=== PATIENT | female | born 1990 | race Hispanic/Latino ===

== ENCOUNTER 2023-05-26 05:31 | Inpatient (IN) | payer BC ==
[2023-05-25 12:55] LABS: Hematocrit 37.6 % (34.9-44.5); Hemoglobin 13.1 g/dL (12.0-15.5); Platelet Count 179 10x3/uL (150-450)
[2023-05-25 13:39] LABS: HBSAg Index 0.16 S/CO (0-0.99); Hep B Surf Ag Non-Reactive S/CO (NonReactive)
[2023-05-25 13:40] LABS: Syphilis Antibody Nonreactive (Nonreactive); Syphilis Antibody Index 0.05 S/CO (<1.00 Non-Reactive)
[2023-05-26 05:55] VITALS: BMI 34.0
[2023-05-26] MEDS ORDERED: Dexmedetomidine 200 MCG/2 ML VIAL ONE (06:32)
[2023-05-26] MEDS ORDERED: Ondansetron PF 4 MG/2 ML Vial IVP PRN ×4 (06:38→11:17)
[2023-05-26] MEDS ORDERED: Promethazine HCl 25 MG/ML VIAL IM PRN ×2 (06:38→07:07)
[2023-05-26] MEDS ORDERED: hydrALAZINE 20 MG/ML VIAL SLOW IVP PRN ×2 (06:38→11:17)
[2023-05-26] MEDS ORDERED: Famotidine/PF 20 mg/2ml Vial SLOW IVP PRN (06:38)
[2023-05-26] MEDS ORDERED: Bicitra 30 ML UDCUP PO PRN (06:38)
[2023-05-26] MEDS ORDERED: Lactated Ringer's 1,000 ML IV SCH (06:45)
[2023-05-26] MEDS ORDERED: Oxytocin 30 units/NS 500 ML 500 ML IV SCH ×2 (06:45→11:17)
[2023-05-26] MEDS ORDERED: CEFAZOLIN 2 GM in Sodium Chloride 0.9% 100 ML IVPB SCH (06:45)
[2023-05-26] MEDS ORDERED: Oxytocin 10 UNITS/ML VIAL ONE (06:57)
[2023-05-26] MEDS ORDERED: Morphine PF 10 MG/10 ML VIAL ONE (06:57)
[2023-05-26] MEDS ORDERED: Ketorolac Tromethamine 30 MG/ML VIAL ONE (06:57)
[2023-05-26] MEDS ORDERED: Ondansetron PF 4 MG/2 ML Vial ONE (06:57)
[2023-05-26] MEDS ORDERED: PHENYLEPHRINE-NS 100 MCG/ML 10 ML SYRINGE ONE (06:57)
[2023-05-26] MEDS ORDERED: Phenylephrine 40 MG/NS 250 ML 250 ML ONE (06:57)
[2023-05-26] MEDS ORDERED: Dexamethasone 4 mg/ml Vial ONE (06:57)
[2023-05-26] MEDS ORDERED: Moisturizing Cream (Eucerin) 113 GM JAR TOP PRN (07:07)
[2023-05-26] MEDS ORDERED: Naloxone HCl 0.4 mg/ml Vial IV PRN (07:07)
[2023-05-26] MEDS ORDERED: Naloxone HCl 0.4 mg/ml Vial IVP PRN ×2 (07:07)
[2023-05-26] MEDS ORDERED: Ketorolac Tromethamine 30 MG/ML VIAL IVP PRN (07:07)
[2023-05-26] MEDS ORDERED: Promethazine HCl 25 MG SUPP PR PRN (07:07)
[2023-05-26] MEDS ORDERED: diphenhydrAMINE 50 MG/ML VIAL IVP PRN (07:07)
[2023-05-26] MEDS ORDERED: Meperidine HCl/PF 25 MG/ML VIAL SLOW IVP PRN (07:07)
[2023-05-26] MEDS ORDERED: fentaNYL 50 mcg/mL 1 mL Vial SLOW IVP PRN (07:07)
[2023-05-26] MEDS ORDERED: Ketorolac Tromethamine 30 MG/ML VIAL IVP SCH (07:15)
[2023-05-26] MEDS ORDERED: Communication Order-Pharmacy FS SCH (07:15)
[2023-05-26] MEDS ORDERED: Phytonadione Neonatal 1 MG/0.5 ML AMP ONE (08:02)
[2023-05-26] MEDS ORDERED: Erythromycin Base 0.5% Oint 1 GM TUBE ONE (08:02)
[2023-05-26] MEDS ORDERED: ePHEDrine Sulfate 50 MG/10 ML VIAL ONE (08:32)
[2023-05-26] MEDS ORDERED: Boostrix 0.5 ML (Tdap) VIAL (>/=7 yrs of age) IM ONE (11:17)
[2023-05-26] MEDS ORDERED: Lanolin Ointment 7 GM TUBE TOP PRN (11:17)
[2023-05-26] MEDS ORDERED: Simethicone Chewable 80 MG TAB PO PRN (11:17)
[2023-05-26] MEDS ORDERED: Bisacodyl 10 MG SUPP PR PRN (11:17)
[2023-05-26] MEDS ORDERED: Prenatal Vitamin 1 TAB PO SCH (12:00)
[2023-05-26] MEDS ORDERED: Ferrous Sulfate 325 MG TAB PO SCH (12:00)
[2023-05-26] MEDS ORDERED: Ibuprofen 800 MG TAB PO SCH (14:00)
[2023-05-26] MEDS: Ketorolac Tromethamine 30 MG/ML VIAL IVP SCH ×2 (14:48→21:05)
[2023-05-26] MEDS ORDERED: HYDROcodone/Acetaminophen 5/325 mg Tablet PO PRN ×2 (19:15)
[2023-05-26] MEDS: Ferrous Sulfate 325 MG TAB PO SCH (22:59)
[2023-05-27] MEDS: Ketorolac Tromethamine 30 MG/ML VIAL IVP SCH ×2 (02:36→09:34)
[2023-05-27 05:54] LABS: Mean Corpuscular HGB CONC 34.4 g/dL (32.0-36.0); Mean Corpuscular Volume 90.1 fl (81.6-98.3); Mean Platelet Volume 11.6 fl (7.4-10.4); Platelet Count 176 10x3/uL (150-450); RBC Distribution Width 13.1 % (11.5-14.5); Red Blood Cell (RBC) Count 3.55 10x6/uL (3.90-5.03); White Blood Cell (WBC) Count 11.1 10x3/uL (3.5-10.5)
[2023-05-27] MEDS: Prenatal Vitamin 1 TAB PO SCH (09:35)
[2023-05-27] MEDS: Ferrous Sulfate 325 MG TAB PO SCH (12:01)
[2023-05-27] MEDS: Ibuprofen 800 MG TAB PO SCH ×2 (13:52→21:33)
[2023-05-28] MEDS: Ferrous Sulfate 325 MG TAB PO SCH ×2 (01:16→07:22)
[2023-05-28] MEDS ORDERED: Senokot S 8.6-50 MG TAB PO SCH (02:00)
[2023-05-28] MEDS: Ibuprofen 800 MG TAB PO SCH (06:08)
[2023-05-28 08:27] VITALS: BP 101/55; TEMP 98.3
[2023-05-28] MEDS: Prenatal Vitamin 1 TAB PO SCH (11:13)
== END 2023-05-28 11:55 | disposition home or self-care (01) | DRG 788 ==
LOC: CSHLD 05:31 → CSHPED 11:23
PROVIDERS: ADMIT Obstetrics & Gynecology; ATTEND Obstetrics & Gynecology
PROC: 10D00Z1 Extraction of Products of Conception, Low, Open Approach (ICD-10-PCS; principal; 2023-05-26)
DX: O34.211 Maternal care for low transverse scar from previous cesarean delivery (principal); Z3A.39 39 weeks gestation of pregnancy; Z37.0 Single live birth
CPT/HCPCS: 36415; 51702; 85014; 85018; 85027; 85049; 86780; 86850; 86900; 86901; 87340; J1100; J1885; J2274; J2405; J2590; J3490; J7120; S0028